=== PATIENT | female | born 1960 | race Caucasian/White ===

== ENCOUNTER 2017-09-10 11:21 | Inpatient (IN) | payer MEDICAID ==
[~2017-09-10] VITALS: Ht 160 cm; Wt 72.6 kg
[2017-09-10 11:32] VITALS: Ht 160 cm; Wt 72.6 kg
[2017-09-10 13:06] LABS: BASOPHIL % 0.4 % (0-2); PLATELET COUNT 238 x10^3mcL (130-400); RED CELL DISTRIBUTION WIDTH 13.3 % (11.5-14.5)
[2017-09-10 13:07] LABS: microscopic required? YES; urine erythrocyte NEGATIVE (NEGATIVE)
[2017-09-10 13:22] LABS: CALCIUM 8.8 mg/dL (8.5-10.1); CARBON DIOXIDE 27.1 mmol/L (21-32); CREATININE SERUM 1.3 mg/dL (0.6-1.0); POTASSIUM SERUM 4.4 mmol/L (3.5-5.1)
[2017-09-10 13:34] LABS: ALBUMIN 3.4 g/dL (3.4-5.0); BILIRUBIN TOTAL 0.3 mg/dL (0.20-1.00); T4(THYROXINE) 5.3 ug/dL (4.7-13.3); TOTAL PROTEIN, SERUM 7.9 g/dL (6.4-8.2)
[2017-09-10] MEDS ORDERED: LANTUS SOLOS100 U/M1 (13:49)
[2017-09-10 14:55] LABS: MAGNESIUM 2.3 mg/dL (1.8-2.4); PHOSPHOROUS 3.5 mg/dL (2.5-4.9)
[2017-09-10 15:28] VITALS: BP 126/74
[2017-09-10 18:50] LABS: RED BLOOD CELLS 4.04 M/mm3 (4.10-5.10)
[2017-09-10 19:23] VITALS: BP 114/62
[2017-09-10 21:25] VITALS: BP 120/57
[2017-09-11] VITALS (10 sets, daily range): BP systolic 100–151; BP diastolic 51–79
[2017-09-11 03:49] LABS: BASOPHIL % 0.4 % (0-2); PLATELET COUNT 221 x10^3mcL (130-400); RED CELL DISTRIBUTION WIDTH 13.4 % (11.5-14.5)
[2017-09-11 04:09] LABS: CARBON DIOXIDE 23.5 mmol/L (21-32); CREATININE SERUM 1.2 mg/dL (0.6-1.0); MAGNESIUM 2.1 mg/dL (1.8-2.4); PHOSPHOROUS 3.6 mg/dL (2.5-4.9); POTASSIUM SERUM 4.3 mmol/L (3.5-5.1)
[2017-09-11 04:51] LABS: IRON 24 ug/dL (50-170); TOTAL IRON BINDING CAPACITY 179 ug/dL (250-450)
[2017-09-12 05:22] VITALS: BP 123/64
[2017-09-12 06:39] LABS: BASOPHIL % 0.3 % (0-2); PLATELET COUNT 230 x10^3mcL (130-400); RED CELL DISTRIBUTION WIDTH 13.2 % (11.5-14.5)
[2017-09-12 06:48] LABS: CALCIUM 8.7 mg/dL (8.5-10.1); CARBON DIOXIDE 24.6 mmol/L (21-32); CREATININE SERUM 1.2 mg/dL (0.6-1.0); MAGNESIUM 2.1 mg/dL (1.8-2.4); PHOSPHOROUS 3.4 mg/dL (2.5-4.9); POTASSIUM SERUM 4.5 mmol/L (3.5-5.1)
[2017-09-12 09:16] VITALS: BP 104/57
[2017-09-12 13:14] VITALS: BP 106/45
[2017-09-12 17:27] VITALS: BP 115/60
[2017-09-12 18:18] VITALS: BP 115/60
== END 2017-09-12 19:19 | disposition short-term general hospital (02) | DRG 190 ==
LOC: ED 11:21 → DU 13:47
PROVIDERS: Emergency Medicine; Family Medicine; Family Medicine Sports Medicine; Internal Medicine Interventional Cardiology
PROC: B2111ZZ Fluoroscopy of Multiple Coronary Arteries using Low Osmolar Contrast (ICD-10-PCS; 2017-09-11)
PROC: B2151ZZ Fluoroscopy of Left Heart using Low Osmolar Contrast (ICD-10-PCS; 2017-09-11)
PROC: B41F1ZZ Fluoroscopy of Right Lower Extremity Arteries using Low Osmolar Contrast (ICD-10-PCS; 2017-09-11)
PROC: 4A023N7 Measurement of Cardiac Sampling and Pressure, Left Heart, Percutaneous Approach (ICD-10-PCS; principal; 2017-09-11 12:00)
DX: I21.4 Non-ST elevation (NSTEMI) myocardial infarction (principal); N17.0 Acute kidney failure with tubular necrosis; I12.9 Hypertensive chronic kidney disease with stage 1 through stage 4 chronic kidney disease, or unspecified chronic kidney disease; E11.22 Type 2 diabetes mellitus with diabetic chronic kidney disease; N18.3 Chronic kidney disease, stage 3 (moderate); E11.65 Type 2 diabetes mellitus with hyperglycemia; E78.2 Mixed hyperlipidemia; Z79.899 Other long term (current) drug therapy; E87.1 Hypo-osmolality and hyponatremia; D64.9 Anemia, unspecified; Z98.41 Cataract extraction status, right eye; Z89.421 Acquired absence of other right toe(s); Z79.4 Long term (current) use of insulin; Z91.14 Patient's other noncompliance with medication regimen; Z68.30 Body mass index [BMI] 30.0-30.9, adult
CPT/HCPCS: CLHCL; 76937; 82962; 83880; 87804; C1769; C1894; J1644; J1815; J1817; J2001; J2250; J2916; J3010; J3490; J7030; J7040; J7050; Q0092; Q9967